=== PATIENT | female | born 1965 | race Caucasian/White ===

== ENCOUNTER 2017-05-20 15:14 | Inpatient (IN) | payer OTHER ==
[2017-05-20 18:25] LABS: ADD MAN DIFF? NO
[2017-05-20 18:27] LABS: BASOPHIL # 0.1 10^3/ul (0.0-0.1); BASOPHILS % 0.8 % (0.0-2.0); EOSINOPHILS # 0.2 10^3/ul (0.0-0.5); HEMATOCRIT 23.4 % (37.0-47.0); LYMPHOCYTES # 3.2 10^3/ul (0.8-2.9); LYMPHOCYTES % 41.7 % (15.0-51.0); MEAN CORPUSCULAR HGB CONC 29.9 g/dl (32.0-37.0); MEAN PLATELET VOLUME 10.4 fl (7.4-10.4); MONOCYTE # 0.7 10^3/ul (0.3-0.9); MONOCYTES % 9.3 % (0.0-11.0); NEUTROPHIL # 3.5 10^3/ul (1.6-7.5); NEUTROPHILS % 44.8 % (39.0-77.0); PLATELET COUNT 400 10^3/UL (140-415); RED BLOOD COUNT 3.04 10^6/ul (4.20-5.40); RED CELL DISTRIBUTION WIDTH 17.2 % (11.5-14.5)
[2017-05-20 18:27] LABS: WHITE BLOOD COUNT 7.7 10^3/ul (4.8-10.8)
[2017-05-20 18:59] LABS: ALANINE AMINOTRANSFERASE 38 IU/L (13-69); ALBUMIN 4.5 g/dl (3.3-4.9); ALBUMIN/GLOBULIN RATIO 1.55; ALKALINE PHOSPHATASE 64 IU/L (42-121); ANION GAP 17 (8-16); ASPARTATE AMINO TRANSFERASE 30 IU/L (15-46); BILIRUBIN,INDIRECT 0.1 mg/dl (0-1.1); BILIRUBIN,TOTAL 0.1 mg/dl (0.2-1.3); BLOOD UREA NITROGEN 17 mg/dl (7-20); CALCIUM 9.3 mg/dl (8.4-10.2); CARBON DIOXIDE 24 mmol/L (21-31); CHLORIDE 106 mmol/L (97-110); CREATININE 0.82 mg/dl (0.44-1.00); GLUCOSE 105 mg/dl (70-220); LACTATE DEHYDROGENASE 525 IU/L (313-618); POTASSIUM 4.6 mmol/L (3.5-5.1); SODIUM 142 mmol/L (135-144); TOTAL PROTEIN 7.4 g/dl (6.1-8.1)
[2017-05-20] MEDS: SOD CHLORIDE 0.9% 1,000 ML IV (19:04)
[2017-05-20 19:06] LABS: TOTAL IRON BINDING CAPACITY 485 ug/dl (241-421)
[2017-05-20 19:26] LABS: IRON < 10 ug/dl (35-150)
[2017-05-20] MEDS: IOHEXOL 300MG/ML 150 ML BTL (19:27)
[2017-05-20] MEDS: SOD CHLORIDE 0.9% 100 ML (19:27)
[2017-05-20 19:43] LABS: ADD UMIC YES; UR ASCORBIC ACID 40 mg/dL (NEGATIVE); UR BACTERIA FEW /HPF (NONE SEEN); UR BILIRUBIN (Dip) NEGATIVE (NEGATIVE); UR BLOOD (Dip) NEGATIVE (NEGATIVE); UR CLARITY CLEAR (CLEAR); UR COLOR YELLOW (YELLOW); UR GLUCOSE (Dip) NEGATIVE (NEGATIVE); UR KETONES (Dip) NEGATIVE (NEGATIVE); UR LEUKOCYTE ESTERASE (Dip) NEGATIVE Leu/ul (NEGATIVE); UR MUCUS FEW /HPF (NONE SEEN); UR NITRITE (Dip) POSITIVE (NEGATIVE); UR RBC 2 /HPF (0-5); UR SPECIFIC GRAVITY (Dip) 1.025 (1.003-1.030); UR TOTAL PROTEIN (Dip) NEGATIVE (NEGATIVE); UR UROBILINOGEN (Dip) NEGATIVE (NEGATIVE); UR WBC 4 /HPF (0-5)
[2017-05-20 19:48] LABS: FERRITIN 4.4 ng/ml (6.2-137.0)
[2017-05-20] MEDS ORDERED: ONDANSETRON 4 MG INJ IV (20:30)
[2017-05-20] MEDS ORDERED: BISACODYL 10 MG SUPP PR (22:00)
[2017-05-20] MEDS ORDERED: NACL 0.9% 3 ML SYG IV (22:00)
[2017-05-20] MEDS ORDERED: DOCUSATE SODIUM 100 MG CAP PO (22:00)
[2017-05-20] MEDS: morphine 2 MG INJ IV (23:39)
[2017-05-20] MEDS: PANTOPRAZOLE 40 MG INJ IV (23:39)
[2017-05-21] MEDS: ZOLPIDEM 5 MG TAB PO (01:59)
[2017-05-21] MEDS ORDERED: CEFTRIAXONE 1 GM/50 ML (PMX) 50 ML IVPB (02:30)
[2017-05-21] MEDS: CEFTRIAXONE 1 GM/50 ML (PMX) 50 ML IVPB (05:48)
[2017-05-21 06:15] LABS: HEMOGLOBIN 7.7 g/dl (12.0-16.0)
[2017-05-21 07:52] LABS: HEMOGLOBIN A1C 5.9 % (0-5.9)
[2017-05-21] MEDS: PANTOPRAZOLE 40 MG INJ IV ×2 (09:09→20:24)
[2017-05-21] MEDS: morphine 2 MG INJ IV (10:33)
[2017-05-21] MEDS: SOD FERRIC GLUC COMPLX 125 MG in SOD CHLORIDE 0.9% 100 ML IVPB (12:20)
[2017-05-21] MEDS: ACETAMINOPHEN 325 MG TAB PO ×2 (12:58→20:23)
[2017-05-21] MEDS: ONDANSETRON 4 MG INJ IV (12:59)
[2017-05-21 14:02] LABS: OCCULT BLOOD STOOL POSITIVE (NEGATIVE)
[2017-05-21 14:25] LABS: HEMATOCRIT 25.6 % (37.0-47.0); HEMOGLOBIN 7.8 g/dl (12.0-16.0)
[2017-05-21 14:46] LABS: IMMEDIATE SPIN CROSSMATCH 1 2
[2017-05-21] MEDS: SOD CHLORIDE 0.9% 250 ML IV* (18:06)
[2017-05-21 19:21] LABS: HEMATOCRIT 29.6 % (37.0-47.0); HEMOGLOBIN 9.3 g/dl (12.0-16.0)
[2017-05-21] MEDS: PEG/ELECTROLYTES 4L BTL PO (20:23)
[2017-05-22 01:30] LABS: HEMATOCRIT 28.9 % (37.0-47.0); HEMOGLOBIN 9.1 g/dl (12.0-16.0)
[2017-05-22] MEDS: morphine 2 MG INJ IV ×2 (03:33→11:33)
[2017-05-22] MEDS: CEFTRIAXONE 1 GM/50 ML (PMX) 50 ML IVPB (04:38)
[2017-05-22 06:23] LABS: ADD MAN DIFF? NO
[2017-05-22 06:30] LABS: WHITE BLOOD COUNT 6.2 10^3/ul (4.8-10.8)
[2017-05-22 06:30] LABS: BASOPHIL # 0.1 10^3/ul (0.0-0.1); EOSINOPHILS # 0.2 10^3/ul (0.0-0.5); EOSINOPHILS % 3.7 % (0.0-7.0); HEMATOCRIT 29.9 % (37.0-47.0); HEMOGLOBIN 9.3 g/dl (12.0-16.0); LYMPHOCYTES # 2.2 10^3/ul (0.8-2.9); MEAN CORPUSCULAR HGB CONC 31.1 g/dl (32.0-37.0); MEAN CORPUSCULAR VOLUME 77.1 fl (82.0-101.0); MEAN PLATELET VOLUME 11.2 fl (7.4-10.4); MONOCYTE # 0.6 10^3/ul (0.3-0.9); MONOCYTES % 9.8 % (0.0-11.0); NEUTROPHIL # 3.1 10^3/ul (1.6-7.5); NEUTROPHILS % 49.9 % (39.0-77.0); PLATELET COUNT 351 10^3/UL (140-415); RED BLOOD COUNT 3.88 10^6/ul (4.20-5.40); RED CELL DISTRIBUTION WIDTH 16.9 % (11.5-14.5)
[2017-05-22 07:22] LABS: ANION GAP 14 (8-16); BLOOD UREA NITROGEN 7 mg/dl (7-20); CALCIUM 9.2 mg/dl (8.4-10.2); CARBON DIOXIDE 26 mmol/L (21-31); CHLORIDE 105 mmol/L (97-110); CREATININE 0.62 mg/dl (0.44-1.00); GLUCOSE 79 mg/dl (70-220); SODIUM 141 mmol/L (135-144)
[2017-05-22] MEDS: PANTOPRAZOLE 40 MG INJ IV ×2 (09:15→20:28)
[2017-05-22] MEDS: SOD FERRIC GLUC COMPLX 125 MG in SOD CHLORIDE 0.9% 100 ML IVPB (11:33)
[2017-05-22] MEDS ORDERED: LIDOCAINE 100 MG SYRINGE (13:04)
[2017-05-22] MEDS ORDERED: PROPOFOL 60 ML (13:04)
[2017-05-22 15:32] LABS: TRANSFERRIN 376 mg/dL (188-341)
[2017-05-22] MEDS: ZOLPIDEM 5 MG TAB PO (23:17)
[2017-05-23] MEDS: CEFTRIAXONE 1 GM/50 ML (PMX) 50 ML IVPB (05:11)
[2017-05-23 06:21] LABS: ADD MAN DIFF? NO
[2017-05-23 06:28] LABS: BASOPHILS % 0.6 % (0.0-2.0); EOSINOPHILS # 0.3 10^3/ul (0.0-0.5); EOSINOPHILS % 4.6 % (0.0-7.0); HEMATOCRIT 33.4 % (37.0-47.0); LYMPHOCYTES # 2.1 10^3/ul (0.8-2.9); LYMPHOCYTES % 33.3 % (15.0-51.0); MEAN CORPUSCULAR HEMOGLOBIN 23.5 pg (29.0-33.0); MEAN CORPUSCULAR HGB CONC 29.9 g/dl (32.0-37.0); MEAN CORPUSCULAR VOLUME 78.6 fl (82.0-101.0); MEAN PLATELET VOLUME 11.2 fl (7.4-10.4); MONOCYTE # 0.6 10^3/ul (0.3-0.9); NEUTROPHIL # 3.2 10^3/ul (1.6-7.5); NEUTROPHILS % 50.7 % (39.0-77.0); PLATELET COUNT 364 10^3/UL (140-415); RED BLOOD COUNT 4.25 10^6/ul (4.20-5.40); RED CELL DISTRIBUTION WIDTH 17.3 % (11.5-14.5)
[2017-05-23 06:28] LABS: WHITE BLOOD COUNT 6.3 10^3/ul (4.8-10.8)
[2017-05-23 07:22] LABS: ANION GAP 16 (8-16); BLOOD UREA NITROGEN 11 mg/dl (7-20); CALCIUM 9.6 mg/dl (8.4-10.2); CARBON DIOXIDE 25 mmol/L (21-31); CHLORIDE 105 mmol/L (97-110); CREATININE 0.65 mg/dl (0.44-1.00); GLUCOSE 87 mg/dl (70-220); MAGNESIUM 1.8 mg/dl (1.7-2.5); POTASSIUM 4.2 mmol/L (3.5-5.1); SODIUM 142 mmol/L (135-144)
[2017-05-23] MEDS: PANTOPRAZOLE 40 MG INJ IV (08:19)
[2017-05-23] MEDS: SOD FERRIC GLUC COMPLX 125 MG in SOD CHLORIDE 0.9% 100 ML IVPB (10:33)
== END 2017-05-23 15:34 | disposition home or self-care (01) | DRG 378 ==
LOC: PP2 21:07 → E/R 15:14 → PP2 20:16
PROC: 0DB68ZX Excision of Stomach, Via Natural or Artificial Opening Endoscopic, Diagnostic (ICD-10-PCS; principal; 2017-05-22 12:30)
PROC: 0DJD8ZZ Inspection of Lower Intestinal Tract, Via Natural or Artificial Opening Endoscopic (ICD-10-PCS; 2017-05-22 12:30)
DX: K62.5 Hemorrhage of anus and rectum (principal); D62 Acute posthemorrhagic anemia; K25.9 Gastric ulcer, unspecified as acute or chronic, without hemorrhage or perforation; D50.9 Iron deficiency anemia, unspecified; K64.8 Other hemorrhoids; K64.4 Residual hemorrhoidal skin tags; K26.9 Duodenal ulcer, unspecified as acute or chronic, without hemorrhage or perforation; K29.80 Duodenitis without bleeding; K21.0 Gastro-esophageal reflux disease with esophagitis; K44.9 Diaphragmatic hernia without obstruction or gangrene; K29.70 Gastritis, unspecified, without bleeding; K57.90 Diverticulosis of intestine, part unspecified, without perforation or abscess without bleeding
CPT/HCPCS: 36430; 74177; 76642; 80048; 80053; 81001; 82270; 82728; 83036; 83540; 83615; 83735; 84443; 84466; 85014; 85018; 85025; 86644; 86850; 86900; 86901; 86920; 87086; 88305; 88312; 93005; 99285-25